=== PATIENT | female | born 1980 | race Caucasian/White ===

== ENCOUNTER → 2018-12-05 | Outpatient (CLI) | payer OTHER | LOC: FIMAGING 14:52 | PROVIDERS: ATTEND Orthopaedic Surgery | DX: M16.11 Unilateral primary osteoarthritis, right hip (principal) ==

== ENCOUNTER 2018-12-15 07:15 | Inpatient (IN) | payer OTHER ==
[2018-12-22] MEDS ORDERED: POVIDONE-IODINE 20 ML in SODIUM CL IRRIG SOLUTION 500 ML IRR ONE (06:00)
[2018-12-22] MEDS ORDERED: ROPIVACAINE 0.2% 80 MG, EPINEPHrine 0.2 MG, KETOROLAC TROMETHAMINE 30 MG in SYRINGE 0 ML IU ONE (06:00)
[2018-12-22] MEDS ORDERED: TRANEXAMIC ACID 1,000 MG in NS 100 ML IV ONE (06:00)
[2018-12-22] MEDS ORDERED: BUPIVACAINE/EPI 0.5% 30 ML SDV ONE (07:29)
[2018-12-22] MEDS ORDERED: DEXAMETHASONE 4 MG/ML VIAL IVP ONE (08:48)
[2018-12-22] MEDS ORDERED: FAMOTIDINE 20 MG TAB PO ONE (08:48)
[2018-12-22] MEDS ORDERED: ceFAZolin 2 GM/DEXTROSE 100 ML IV ONE (08:48)
[2018-12-22] MEDS ORDERED: ACETAMINOPHEN 325 MG TAB PO ONE (08:48)
[2018-12-22] MEDS ORDERED: LR 1,000 ML IV ONE (08:49)
[2018-12-22] MEDS ORDERED: LIDOCAINE 1% 2 ML INJ ID PRN (08:49)
[2018-12-22] MEDS ORDERED: BUPIVACAINE/DEXTROSE 7.5MG/ML 2 ML SPINAL AMP SP ONE (10:00)
[2018-12-22] MEDS ORDERED: LIDOCAINE 2% 100 MG/5 ML SYR ONE (10:00)
[2018-12-22] MEDS ORDERED: PROPOFOL/EMULSION 500 MG/50 ML BOTTLE IV ONE ×3 (10:01→12:13)
[2018-12-22] MEDS ORDERED: fentaNYL 100 MCG/2 ML INJ ONE ×3 (10:01→13:45)
--- NOTE | 2018-12-22 10:09 | PDHPUP ---
History & Physical Update H&P update statement: This history and physical update is based on an assessment of the patient which was completed after admission or registration (within 24 hours), but prior to the surgery/procedure. H&P update: H&P reviewed & patient examined, no change in patient's condition since H&P completed
--- NOTE | 2018-12-22 10:31 | PDANEPAE ---
ANE History of Present Illness right hip djd, here for R LIZ ANE Past Medical History - Cardiovascular History Hx Hypertension: Yes Hx Arrhythmias: No Hx Chest Pain: No Hx Coronary Artery / Peripheral Vascular Disease: No Hx CHF / Valvular Disease: No Hx Palpitations: No Cardiovascular History Comment: MILD ELEV BP - Pulmonary History Hx COPD: No Hx Asthma/Reactive Airway Disease: No Hx Recent Upper Respiratory Infection: No Hx Oxygen in Use at Home: No Hx Sleep Apnea: No Sleep Apnea Screening Result - Last Documented: Negative - Neurologic History Hx Cerebrovascular Accident: No Hx Seizures: No Hx Dementia: No - Endocrine History Hx Diabetes: No - Renal History Hx Renal Disorders: No - Liver History Hx Hepatic Disorders: No - Neurological & Psychiatric Hx Hx Neurological and Psychiatric Disorders: No Neurological / Psychiatric History Comment: ANXIETY & DEPRESSION - Cancer History Hx Cancer: No - Congenital Disorder History Hx Congenital Disorders: No - GI History Hx Gastrointestinal Disorders: No - Other Health History Other Health History: NEG - Chronic Pain History Chronic Pain: Yes (CHARLA HIP) - Surgical History Prior Surgeries: NONE ANE Review of Systems Review of Systems: - Exercise capacity METS (RN): 5 METS ANE Patient History - Allergies Allergies/Adverse Reactions: No Known Allergies Allergy (Verified 12/22/18 09:12) - Home Medications Home Medications: Ibuprofen [Motrin (*)] 200 mg PO DAILY PRN 12/07/18 [Last Taken 1 Week Ago ~] Lisinopril [Zestril 2.5 mg (*)] 2.5 mg PO DAILY 12/07/18 [Last Taken 12/21/18 22 :00] Norethindrone-E.estradiol-Iron [Blisovi Fe 1.5-30 Tablet] 1 each PO DAILY [Last Taken 1 Week Ago ~12/15/18] Venlafaxine Xr [Effexor Xr 75MG (*)] 0.25 tab PO HS 12/07/18 [Last Taken 22:00] - NPO status NPO Since - Liquids (Date): 12/22/18 NPO Since - Liquids (Time): 06:30 NPO Since - Solids (Date): 12/21/18 NPO Since - Solids (Time): 19:30 - Smoking Hx Smoking Status: Never smoked - Family Anes Hx Family Hx Anesthesia Complications: NEG ANE Labs/Vital Signs - Vital Signs Blood Pressure: 117/85 Heart Rate: 66 Respiratory Rate: 17 O2 Sat (%): 93 Height: 162.56 cm Weight: 72.575 kg ANE Physical Exam - Airway Neck exam: FROM Mallampati Score: Class 1 Mouth exam: normal dental/mouth exam - Pulmonary Pulmonary: no respiratory distress, no rales or rhonchi - Cardiovascular Cardiovascular: regular rate and rhythym, no murmur, rub, or gallop - ASA Status ASA Status: II (braces) ANE Anesthesia Plan Anesthesia Plan: GA with mask, spinal Total IV Anesthesia: Yes
[2018-12-22] MEDS ORDERED: MIDAZOLAM 2 MG/2 ML VIAL ONE (10:33)
[2018-12-22] MEDS ORDERED: MIDAZOLAM 2 MG/2 ML VIAL IVP ONE (10:35)
[2018-12-22] MEDS ORDERED: METOCLOPRAMIDE 10 MG/2 ML VIAL IVP PRN (12:59)
[2018-12-22] MEDS ORDERED: oxyCODONE IR 5 MG TAB PO PRN (12:59)
[2018-12-22] MEDS ORDERED: ACETAMINOPHEN 500 MG TAB PO PRN (12:59)
[2018-12-22] MEDS ORDERED: LR 500 ML IV PRN (12:59)
[2018-12-22] MEDS ORDERED: DIAZEPAM 10 MG/2 ML SYR IVP PRN (12:59)
[2018-12-22] MEDS ORDERED: fentaNYL 100 MCG/2 ML INJ IVP PRN (12:59)
[2018-12-22] MEDS ORDERED: PROMETHAZINE HCL 25 MG/ML INJ IVP PRN ×2 (12:59→13:01)
[2018-12-22] MEDS ORDERED: NALOXONE HCL 0.4 MG/ML INJ IVP PRN (12:59)
[2018-12-22] MEDS ORDERED: MEPERIDINE 25 MG/0.5 ML AMP IVP PRN (12:59)
[2018-12-22] MEDS ORDERED: HYDROmorphONE/DILAUDID 1 MG/ML INJ IVP PRN (12:59)
[2018-12-22] MEDS ORDERED: diphenhydrAMINE 25 MG CAP PO PRN (13:01)
[2018-12-22] MEDS ORDERED: ONDANSETRON DISINTEGRATING 4 MG TAB PO PRN (13:01)
[2018-12-22] MEDS ORDERED: ONDANSETRON 4 MG/2 ML VIAL IVP PRN (13:01)
[2018-12-22] MEDS ORDERED: POLYETHYLENE GLYCOL 3350 17 GM PKT PO PRN (13:01)
[2018-12-22] MEDS ORDERED: PROMETHAZINE HCL 25 MG SUPPR PR PRN (13:01)
[2018-12-22] MEDS ORDERED: MAGNESIUM HYDROXIDE 30 ML UDCUP PO PRN (13:01)
[2018-12-22] MEDS ORDERED: BISACODYL 10 MG SUPP PR PRN (13:01)
[2018-12-22] MEDS ORDERED: LACTULOSE 20 GM/30 ML UDCUP PO PRN (13:01)
[2018-12-22] MEDS ORDERED: DIPHENOXYLATE/ATROPINE LOMOTIL 1 TAB PO PRN (13:01)
[2018-12-22] MEDS ORDERED: TEMAZEPAM 15 MG CAP PO PRN (13:01)
--- NOTE | 2018-12-22 13:08 | POSTOPPROG ---
Post Op Note Date of Operation: 12/22/18 Surgeon: Wilian Reece Core Worker: BRIANNE Garcia Anesthesiologist: DO Ankit Anesthesia: IV Sedation, Spinal Pre-op Diagnosis: R hip dysplasia and OA Post-op Diagnosis: same Procedure: R ant LIZ with JOHNNY Inf/Abcess present in the surg proc area at time of surgery?: No EBL: 100-500 (400) Drains: Hemovac
--- NOTE | 2018-12-22 13:18 | POSTANESTH ---
Post Anesthetic Evaluation Cardiovascular Status: Normal, Stable Respiratory Status: Normal, Stable Level of Consciousness/Mental Status: Can Participate in Eval, Moderately Sleepy Pain Control: Adequate, Prn Tx Ordered Nausea/Vomiting Control: Adequate, Prn Tx Ordered Complications Possibly Related to Anesthesia: None Noted
[2018-12-22] MEDS ORDERED: LR 1,000 ML IV SCH (13:30)
--- NOTE | 2018-12-22 13:42 | PDMN ---
Medical Necessity Medical necessity: Pt meets inpt criteria per MD order and [facility] [place] S-560, Hip Arthroplasty, MCR IP only list, A-2 days. 38 y/o w/R hip dysplasia and OA admitted for R ant LIZ w/JOHNNY and post-op care.
[2018-12-22] MEDS ORDERED: HYDROmorphONE/DILAUDID 1 MG/ML INJ ONE (13:45)
--- NOTE | 2018-12-22 14:23 | GOP ---
[f rep st] OPERATIVE REPORT DATE OF OPERATION: 12/22/2018 SURGEON: Wilian Reece MD RETRIEVAL SPECIALIST: Saleem Garcia CFA. Bead Trimmer was required for the procedure due to the complexity of the case, patient's condition for p ositioning, prepping, draping, retraction, and closure. ANESTHESIA: Spinal and IV sedation. PREOPERATIVE DIAGNOSIS: Right hip dysplasia and osteoarthritis. POSTOPERATIVE DIAGNOSIS: Right hip dysplasia and osteoarthritis. PROCEDURE PERFORMED: Right anterior total hip arthroplasty with MAKOplasty robotic guidance, fluoros copic supervision greater than 1 hour. FINDINGS: SPECIMENS: Femoral head x1. ESTIMATED BLOOD LOSS: 300 cc. INDICATIONS: Patient has severe right hip pain, dysplasia, and arthritis that failed to improve with conservative measures, significantly affecting her activities of daily living including walking. Th e patient elected to proceed with anterior approach hip replacement using MAKOplasty robotic guidance after extensive discussion of all possible approaches as well as the risks, benefits, pros, cons, ex pected recovery, and prognosis. The patient verbalized understanding of the risks and benefits of th e procedure and signed informed consent prior to the procedure. DESCRIPTION OF PROCEDURE: Patient was seen in the holding area. Operative consent and extremity wer e signed. The patient was then taken the operating room. After smooth induction of spinal anesthesi a and sedation, the patient was placed in the supine position on the operating table with the arch ta ble extension. Hip and contralateral iliac crest were prepped and draped in the usual sterile fashio n. Operative site was confirmed by signature. Operative time-out performed. Allergies reviewed. A ntibiotics and TXA were administered. Three pins were placed in the contralateral iliac cresta and the pelvic array was fixed. It was well visualized by the robot. Desired incision for the anterior approach was infiltrated with 0.25% Zac ivana with epinephrine. The incision was made with a 10 blade, carried through the subcutaneous tissu e to identify the TFL fascia. This was incised in line with the incision. The TFL was retracted lat erally and the lateral femoral circumflex vessels were coagulated with Aquamantys. The deep TFL fasc ia was incised and the vastus lateralis was clearly exposed. Precapsular fat was excised. A T-shape d capsulotomy was performed. The capsule was preserved for later closure. Femoral neck cut was then performed based on pretemplated calculations and imaging. The femoral head was excised with a corks crew. The acetabulum was then exposed in standard fashion. The labrum pulvinar soft tissues were exc ised sharply. The pelvic checkpoint was then placed in the AIIS. Acetabular registration was perfor med using the robot. Reaming was then performed using the robot to desired size. The cup was impact ed into place, again with robotic guidance. Good fixation was achieved. The cup was irrigated and d ried and the liner was impacted into place achieving good locking within the cup. The femur was then exposed in standard fashion. The femur was broached to the desired size. Trial n haja and head were attached, and the hip was relocated. The position of all components was confirmed f luoroscopically. The foot was then externally rotated 90 degrees, extended to the floor, and stabili ty was confirmed. The hip was then dislocated. The femoral trial components were removed and the st em was impacted into place. The trunnion was cleaned and dried, and the head was impacted on the fede nnion. The wound was copiously irrigated including the cup with pulse lavage, and the hip was once a gain relocated. Component placement was confirmed with fluoroscopy. All checkpoints were removed. The pelvic array was also removed. The wound was copiously irrigated with sterile solution. Dilute Betadine solution was then irrigated into the wound and allowed to soa k for 3 minutes before being irrigated out. Joint cocktail was injected into the soft tissues. The capsule and the indirect head of the rectus femoris were repaired with #1 Vicryl suture. The drain w as placed exiting distally and laterally from deep to TFL. The wound was then closed in layers with 0 Quill in the TFL fascia and deep subcutaneous fat, 3-0 Versalok in the dermis. The wound was dress ed with sterile dressing. Patient was safely awakened and taken to the recovery room in stable condi tion. All critical portions of the procedure were performed by myself, Dr. Reece. This operative note was c reated by myself and I was immediately available for emergency cross-coverage at all times. DRAINS: Hemovac x1. COMPLICATIONS: None. IMPLANTS: Kenny Trident 2 cluster hole acetabular shell size 50 with a 0 degree, 32 mm polyethylen e liner, Kenny Accolade 2 size 3 stem with 132 degree offset with a 32 mm +4 mm head. /[id number]/MODL
[2018-12-22] MEDS: CYCLOBENZAPRINE 10 MG TAB PO PRN (15:32)
--- NOTE | 2018-12-22 16:35 | SOAPPROG ---
SOAP Progress Note Assessment/Plan: Assessment: s/p right anterior LIZ, David assist - POD 0 - performed by Dr. Reece Plan: Begin d/c planning - likely home tomorrow. Will have support of her . Continue oral pain medication Continue VTEppx - aspirin 81 mg BID, SCDs, ERIKA alarcone Continue PT/OT efforts - WBAT with assistance, ROM as tolerated, follow anterior total hip precautions Remove drain in morning Subjective: Patient states she is doing ok, her hip feels more tight and crampy. She is hoping to go home tomorrow. She denies SOB, CP, fever, chills, nausea, numbness , tingling. Objective: Vital Signs Temp Pulse Resp BP Pulse Ox 36.6 C 64 18 119/68 96 12/22/18 15:27 12/22/18 15:27 12/22/18 15:27 12/22/18 15:27 12/22/18 15:27 12/21/18 12/22/18 12/23/18 05:59 05:59 05:59 Intake Total 1300 Output Total 300 Balance 1000 Patient resting in bed, no acute distress. RLE: Wound dressings are clean, dry and intact. Hemovac is in place. Lower leg compartments are soft and nontender. She can actively DF and PF her right foot and great toe against resistance. Grossly NVI distally. ICD10 Worksheet Patient Problems: Problems Problem Status Onset Congenital dysplasia of right hip Acute Osteoarthritis of right hip Acute
[2018-12-22] MEDS: ACETAMINOPHEN 325 MG TAB PO SCH (18:14)
[2018-12-22] MEDS: ceFAZolin 2 GM/DEXTROSE 100 ML IV SCH (18:17)
[2018-12-22] MEDS: oxyCODONE IR 5 MG TAB PO PRN (18:20)
[2018-12-22] MEDS: ASPIRIN 81 MG CHEWABLE TAB PO SCH (20:37)
[2018-12-22] MEDS: SENNOSIDES/DOCUSATE SODIUM TAB PO SCH (20:38)
[2018-12-22] MEDS: FAMOTIDINE 20 MG TAB PO SCH (20:38)
[2018-12-22] MEDS ORDERED: VENLAFAXINE XR 75 MG CAP PO SCH (21:00)
[2018-12-22] MEDS ORDERED: VENLAFAXINE HCL 75 MG TAB PO SCH (21:00)
[2018-12-23] MEDS: ACETAMINOPHEN 325 MG TAB PO SCH ×2 (01:08→06:40)
[2018-12-23] MEDS: CYCLOBENZAPRINE 10 MG TAB PO PRN (01:09)
[2018-12-23] MEDS: ceFAZolin 2 GM/DEXTROSE 100 ML IV SCH (01:10)
[2018-12-23] MEDS: oxyCODONE IR 5 MG TAB PO PRN (04:52)
--- NOTE | 2018-12-23 07:23 | SOAPPROG ---
SOAP Progress Note Assessment/Plan: Assessment: 38-year-old female postop day 1 status post right anterior total hip arthroplasty Plan: Weight-bearing as tolerated, PT/OT DVT prophylaxis: SCDs, Sebastian Hose, aspirin 81 mg twice daily IS 10 times per hour Analgesics: Celebrex and Percocet Disposition: Home today after physical therapy 12/23/18 07:20 Subjective: No acute events. Pain well controlled. Denies fevers chills nausea vomiting chest pain shortness of breath numbness or tingling. Ambulated yesterday evening. Objective: Vital Signs Temp Pulse Resp BP Pulse Ox 37.2 C 69 16 126/82 H 94 12/23/18 04:51 12/23/18 04:51 12/23/18 04:51 12/23/18 04:51 12/23/18 04:51 Laboratory Results 12/23/18 04:20 12/22/18 12/23/18 12/24/18 05:59 05:59 05:59 Intake Total 3160 Output Total 2240 500 Balance 920 -500 Awake alert and oriented x3 No acute distress Easy nonlabored breathing Right thigh: Dressing clean dry intact no erythema drainage or signs of infection Drain discontinued, dressing clean and intact Thigh and calf compartments soft compressible Sensation intact to light touch L3-S1 Motor intact EHL FHL tibialis anterior gastrocsoleus Palpable DP PT pulses - Pending Discharge Pending Discharge Within 24 Hours: Yes Pending Discharge Date: 12/23/18 Pending Discharge Time: 11:00 ICD10 Worksheet Patient Problems: Problems Problem Status Onset Congenital dysplasia of right hip Acute Osteoarthritis of right hip Acute
[2018-12-23] MEDS ORDERED: ACETAMINOPHEN 325 MG TAB PO PRN (07:25)
--- NOTE | 2018-12-23 07:58 | PDDCSUM ---
Discharge Summary Discharge Summary: ADMISSION DIAGNOSIS: Right hip dysplasia, labrum tear, degenerative arthritis DISCHARGE DIAGNOSIS: Right hip dysplasia, labrum tear, degenerative arthritis OPERATION PERFORMED: December 22, 2018, Right total hip arthroplasty, anterior approach POSTOPERATIVE COMPLICATIONS: None CONDITION ON DISCHARGE: Improved HPI: The patient is a 38 year old female who has history of right hip dysplasia , labrum tear and degenerative arthritis. Clinical, MRI and x-ray features are consistent with this. Patient has failed attempts at conservative management, therefore, recommended operative right total hip replacement. DESCRIPTION OF HOSPITAL COURSE: The patient was admitted to the hospital on the morning of surgery and underwent a right total hip arthroplasty, anterior approach. Postoperatively, patient was treated with multimodal DVT prophylaxis, including aspirin 81 mg twice per day, SCDs and ERIKA hose. Patient was seen by PT and made good progress with ambulation and stairs. On the first post- operative day the patients H&H was 11.4/34.6. Patient was able to void spontaneously. Patient has done better than expected and would like to be discharged home today. At the time of discharge, patient was afebrile, wound was clean and dry. Patient is walking with a walker. DISPOSITION: The patient is discharged home with the support of her and may have outpatient PT within the next 2 weeks. Patient may progress to full weightbearing on the right lower extremity as tolerated. ERIKA stockings for 2 weeks during the daytime if she is not very mobile. Aspirin 81 mg twice per day for 3 weeks. Patient has prescriptions for Celebrex and Percocet for pain control. The patient will be seen by Dr. Jara office in approximately 2 weeks. If there are any problems, patient is to call Dr. Jara office.
[2018-12-23] MEDS: SENNOSIDES/DOCUSATE SODIUM TAB PO SCH (08:33)
[2018-12-23] MEDS: ASPIRIN 81 MG CHEWABLE TAB PO SCH (08:33)
[2018-12-23] MEDS: FAMOTIDINE 20 MG TAB PO SCH (08:33)
[2018-12-23] MEDS ORDERED: LISINOPRIL 5 MG TAB PO SCH (09:00)
--- NOTE | 2018-12-23 09:41 | ASMTLACE ---
LACE Length of stay for Answers: Less than 1 day current admission Acuity / Level of Answers: Yes Care: Did the patient have an inpatient admission? Comorbidities - select Answers: Opioid dependence all that apply / Chronic pain Other Notes: HTN # of Emergency department Answers: 0 visits in the last 6 months Social determinants Answers: Mental health diagnosis (anxiety, depression, pers onality disorders, etc.) Score: 11 Date Signed: 12/23/2018 09:40 AM Electronically Signed By:BRIAN Avery
--- NOTE | 2018-12-23 10:26 | ASDISCHSUM ---
Discharge Information Plan Status:Home with No Needs Medically Cleared to Leave:12/23/2018 Discharge Date:12/23/2018 CM D/C Disposition:Home, Routine, Self-Care ADT D/C Disposition:Home, Routine, Self-Care Projected Discharge Date:12/23/2018 Transportation at D/C:Family Discharge Delay Reason: Follow-Up Date:12/23/2018 Discharge Slot: Final Diagnosis: Placement Information Patient Contact Information Contact Name:TEJAS Relationship:Tobi Address:[address] [facility] Work Phone: City:[place] Alternate Phone: State/Zip Code:[place] [address] Email: Financial Information Financial Class:HMO and PPO Plans Primary Plan Desc:[employer] Primary Plan Number:[id number] Secondary Plan Desc: Secondary Plan Number: Assessment Information LACE LACE Length of stay for Answers: Less than 1 day current admission Acuity / Level of Answers: Yes Care: Did the patient have an inpatient admission? Comorbidities - select Answers: Opioid dependence all that apply / Chronic pain Other Notes: HTN # of Emergency department Answers: 0 visits in the last 6 months Social determinants Answers: Mental health diagnosis (anxiety, depression, pers onality disorders, etc.) Score: 11 Date Signed: 12/23/2018 09:40 AM Electronically Signed By:BRIAN Avery Intervention Information
--- NOTE | 2018-12-23 11:18 | ASMTDCNOTE ---
Case Management Discharge Discharge Order Complete? Answers: Yes Patient to Obtain Answers: via Family Medications Transportation Arranged Answers: Family/Friends Discharge Comments Notes: Pt is s/p planned LIZ. PT has cleared her for outpt rehab. She will d/c home independent with her . She has no CM needs. Date Signed: 12/23/2018 11:17 AM Electronically Signed By:BRIAN Avery
[2018-12-23 11:29] VITALS: BP 114/78
[2018-12-24] MEDS ORDERED: OXYCODONE/APAP 5/325 TAB PO PRN (07:22)
== END 2018-12-23 12:08 | disposition home or self-care (01) | DRG 470 ==
LOC: F3N 12-22 08:20
PROVIDERS: ADMIT Orthopaedic Surgery; ATTEND Orthopaedic Surgery
DX: M16.11 Unilateral primary osteoarthritis, right hip (principal); Q65.89 Other specified congenital deformities of hip; I10 Essential (primary) hypertension
CPT/HCPCS: 97110-GP; 97116-GP; 97161-GP; 97165-GO; J0171; J0690; J1100; J1170; J1885; J2001; J2250; J2704; J2795; J3010

== ENCOUNTER → 2019-01-12 | Outpatient (CLI) | payer OTHER | LOC: FIMAGING 14:06 ==